=== PATIENT | female | born 2000 | race Two or more races ===

== ENCOUNTER 2020-12-29 12:42 | Emergency (ER) | payer MEDICAID ==
[~2020-12-29] VITALS: Ht 157.5 cm; Wt 49.0 kg
[2020-12-29 13:09] VITALS: BP 112/56
[2020-12-29 13:49] LABS: BASOPHILS % (AUTO) 0.1 % (0-1); EOSINOPHILS % (AUTO) 0 % (0-6); HEMATOCRIT 39.6 % (35.0-45.0); HEMOGLOBIN 13.6 g/dl (12.0-16.0); LYMPHOCYTES # (AUTO) 1.1 X10'3 (1.1-4.8); LYMPHOCYTES % (AUTO) 7.6 % (21-51); MEAN CORPUSCULAR HEMOGLOBIN 31.8 PG (27.0-31.0); MEAN CORPUSCULAR HGB CONC 34.4 g/dL (33.0-36.5); MEAN CORPUSCULAR VOLUME 92.5 FL (78-98); MEAN PLATELET VOLUME 9.6 FL (7.4-10.4); MONOCYTES # (AUTO) 0.5 X10'3 (0-0.9); MONOCYTES % (AUTO) 3.3 % (2-12); NEUTROPHILS # (AUTO) 12.4 X10'3 (1.8-7.7); PLATELET COUNT 173 X10'3 (140-440); RED BLOOD COUNT 4.28 X10'6 (4.20-5.60); RED CELL DISTRIBUTION WIDTH 12.8 % (11.5-14.5); WHITE BLOOD COUNT 13.9 X10'3 (4.5-11.0)
[2020-12-29 13:59] LABS: ALANINE AMINOTRANSFERASE 36 U/L (12-78); ALBUMIN 4.3 G/DL (3.4-5.0); ALBUMIN/GLOBULIN RATIO 1.2 (1.1-1.5); ALKALINE PHOSPHATASE 53 IU/L (46-116); ANION GAP 9 (8-16); ASPARTATE AMINO TRANSFERASE 20 U/L (10-37); BILIRUBIN,TOTAL 0.7 MG/DL (0.1-1.0); BLOOD UREA NITROGEN 8 MG/DL (7-18); BUN/CREATININE RATIO 12.5 (6.6-38.0); CALCIUM 9.4 MG/DL (8.5-10.1); CHLORIDE 106 MMOL/L (99-107); CREATININE 0.64 MG/DL (0.40-0.90); GLUCOSE 101 MG/DL (70-104); LIPASE 92 U/L (73-393); SODIUM 144 MMOL/L (135-145); TOTAL CARBON DIOXIDE 29.4 MMOL/L (24-32); TOTAL PROTEIN 7.8 G/DL (6.4-8.2); eGFR > 90 ML/MIN
[2020-12-29 14:00] LABS: URINE HCG NEGATIVE (NEG)
[2020-12-29 14:01] LABS: CLARITY,URINE CLEAR (Clear); COLOR,URINE YELLOW (Yellow); GLUCOSE, URINE NEGATIVE (Neg); KETONES,URINE NEGATIVE (Neg); LEUKOCYTE ESTERASE ,URINE NEGATIVE (Neg); NITRITES, URINE NEGATIVE (Neg); OCCULT BLOOD,URINE NEGATIVE (Neg); PROTEIN,URINE NEGATIVE (Neg); UROBILINOGEN,URINE 0.2 E.U/dL (0.2-1.0)
[2020-12-29 14:02] LABS: UA COLLECTION TYPE CLN CATCH MIDSTREAM
[2020-12-29 14:05] LABS: HCG SERUM QL NEGATIVE
[2020-12-29] MEDS ORDERED: iohexol 300mg/ml 100ml inj. ONE (16:49)
[2020-12-29] MEDS ORDERED: HYDR-3965 PO (17:42)
[2020-12-29] MEDS ORDERED: ONDA4TAB6 PO (17:42)
== END 2020-12-29 17:52 | disposition home or self-care (01) ==
LOC: ER 12:42
DX: R10.2 Pelvic and perineal pain (principal); Z79.899 Other long term (current) drug therapy
CPT/HCPCS: 36415; 74177; 76856; 80053; 81003; 81025; 83690; 84703; 85025; 93976; 99285; Q9967

== ENCOUNTER 2021-02-23 20:04 | Emergency (ER) | payer MEDICAID ==
[~2021-02-23] VITALS: Ht 157.5 cm; Wt 48.2 kg
[~2021-02-23 20:04] MED LIST: LIDOcaine 1% 30ml preserv. free vial ONE; ONDA4TAB6 PO
[2021-02-23] MEDS ORDERED: iohexol 300mg/ml 100ml inj. ONE (22:13)
[2021-02-23] MEDS ORDERED: clindamycin 600mg/D5W 50ml 50 ML IV ONE (23:40)
[2021-02-24] MEDS ORDERED: CLIN300C54 PO (00:48)
[2021-02-24] MEDS ORDERED: CLIN150C2 PO (00:48)
[2021-02-24 01:23] VITALS: BP 123/76
== END 2021-02-24 01:25 | disposition home or self-care (01) ==
LOC: ER 20:05
DX: K05.219 Aggressive periodontitis, localized, unspecified severity (principal); L03.211 Cellulitis of face; K08.89 Other specified disorders of teeth and supporting structures; Z79.899 Other long term (current) drug therapy
CPT/HCPCS: 41800; 70491; 96365; 99285; J2001; Q9967; J3490

== ENCOUNTER 2023-05-30 00:46 | Emergency (ER) | payer MEDICAID ==
[~2023-05-30] VITALS: Ht 157.5 cm; Wt 59.1 kg
[~2023-05-30 00:46] MED LIST changes: -LIDOcaine 1% 30ml preserv. free vial ONE
[2023-05-30 01:03] VITALS: BP 118/67; TEMP 98.3
[2023-05-30] MEDS ORDERED: bacitracin 15gm ointment TP ONE (01:30)
[2023-05-30 01:36] VITALS: PULSE 95; RESP 16; O2SAT 99
== END 2023-05-30 01:38 ==
LOC: ER 00:47
DX: S80.211A Abrasion, right knee, initial encounter (principal); S80.212A Abrasion, left knee, initial encounter; V89.0XXA Person injured in unspecified motor-vehicle accident, nontraffic, initial encounter; Y93.89 Activity, other specified; Y92.89 Other specified places as the place of occurrence of the external cause; Y99.8 Other external cause status
CPT/HCPCS: 99283